=== PATIENT | male | born 1965 ===

== ENCOUNTER → 2021-04-07 | Outpatient (CLI) | payer BC ==
--- NOTE | 2021-04-07 12:46 | RAD ---
Right lower extremity venous real time grayscale, color and spectral duplex ultrasound was performed. History: Reason: RLE CALF CRAMPING / Spl. Instructions: / History: Comparison: None The right common femoral, femoral, and popliteal veins demonstrate anechoic lumina, full compressib ility, augmentable waveforms, and cephalad color Doppler flow. The posterior tibial are also patent . Normal flow is also seen in the cephalad portion of the saphenous vein. Impression: No evidence of DVT in the right lower extremity. Electronically signed by: Mnae Reyna MD (04/07/2021 12:44 PM) [id number]
== END ==
LOC: US 12:16
PROVIDERS: ATTEND Specialist
DX: R25.2 Cramp and spasm (principal)
CPT/HCPCS: 93971